=== PATIENT | male | born 1995 | race Caucasian/White ===

== ENCOUNTER 2017-10-19 05:20 | Emergency (ER) | payer BC ==
--- NOTE | 2017-10-19 05:56 | ED ---
Substance Abuse/Use - HPI Summary HPI Summary: Pt. is a 22-year-old male who emergency department by the [place] police after being found on the side of the road intoxicated. In the ER pt. is awake, alert and oriented. He offers no complaints other than stating he wants to go home. Pt. denies past medical history. He denies daily medications. Pt. denies any pain or injuries. Symptoms are mild in severity. No current modifying factors. Pt. is a student at [employer]. - History Of Current Complaint Chief Complaint: EDSubstanceAbuse Stated Complaint: 2208 Time Seen by Provider: 10/19/17 05:38 Hx Obtained From: Patient - Allergies/Home Medications Allergies/Adverse Reactions: Allergies Allergy/AdvReac Type Severity Reaction Status Date / Time No Known Allergies Allergy Verified 10/19/17 07:26 Home Medications: Home Medications NK [No Home Medications Reported] 10/19/17 [History Confirmed 10/19/17] PMH/Surg Hx/FS Hx/Imm Hx Previously Healthy: Yes Infectious Disease History: No Infectious Disease History: Denies: Traveled Outside the [place] in Last 30 Days - Social History Occupation: Student Lives: Dormitory/Roommates Alcohol Use: Occasionally Review of Systems Constitutional: Negative Eyes: Negative ENT: Negative Cardiovascular: Negative Negative: Chest Pain Respiratory: Negative Negative: Shortness Of Breath Gastrointestinal: Negative Negative: Abdominal Pain, Vomiting Musculoskeletal: Negative Skin: Negative Neurological: Negative All Other Systems Reviewed And Are Negative: Yes Physical Exam Triage Information Reviewed: Yes Vital Signs On Initial Exam: Initial Vitals Temp Pulse Resp BP Pulse Ox 97.6 F 109 16 158/88 97 10/19/17 05:25 10/19/17 05:25 10/19/17 05:25 10/19/17 05:25 10/19/17 05:25 Vital Signs Reviewed: Yes Appearance: Positive: Well-Appearing - Pt. sitting up in bed in NAD. Answers questions appropriately. Skin: Positive: Warm, Dry Head/Face: Positive: Normal Head/Face Inspection Eyes: Positive: Normal Neck: Positive: Supple Respiratory/Lung Sounds: Positive: Clear to Auscultation, Breath Sounds Present Cardiovascular: Positive: Normal, RRR Abdomen Description: Positive: Nontender, No Organomegaly Musculoskeletal: Positive: Normal, Strength/ROM Intact Neurological: Positive: Normal, CN Intact II-III Psychiatric: Positive: Affect/Mood Appropriate - Hawkeye Coma Scale Best Eye Response: 4 - Spontaneous Best Motor Response: 6 - Obeys Commands Best Verbal Response: 5 - Oriented Coma Scale Total: 15 Diagnostics - Vital Signs Vital Signs Temp Pulse Resp BP Pulse Ox 10/19/17 05:25 97.6 F 109 16 158/88 97 - Laboratory Lab Statement: Any lab studies that have been ordered have been reviewed, and results considered in the medical decision making process. Course/Dx - Course Course Of Treatment: Pt. presenting for intoxication. VS stable. Pt. is awake, alert and O x 3. Pt. denies SI. He was observed in the ER for over 3 hours. At the time of discharge pt. was able to ambulate by himself without difficulty. He is discharged and will be taken back to [employer] by taxi. Advised to avoid drug or ETOH use. To increase fluids. Will return to ER if needed, otherwise f.u with [facility]. - Diagnoses Differential Diagnosis/HQI/PQRI: Positive: Alcohol Abuse, Alcohol Withdrawal, Anxiety, Depression, Drug Abuse Provider Diagnoses: Intoxication Discharge - Sign-Out/Discharge Documenting (check all that apply): Patient Departure - Discharge Plan Condition: Good Disposition: HOME Patient Education Materials: Alcohol Intoxication (ED) Referrals: [facility] [Outside] No Primary Care Phys,NOPCP [Primary Care Provider] - Additional Instructions: Avoid alcohol and drug use Return to ER if needed - Billing Disposition and Condition Condition: GOOD Disposition: Home
[2017-10-19 08:47] VITALS: BP 102/58
== END 2017-10-19 08:46 | disposition home or self-care (01) ==
LOC: ED 05:20
DX: F10.129 Alcohol abuse with intoxication, unspecified (principal)
CPT/HCPCS: 99282